=== PATIENT | female | born 1955 | race Caucasian/White ===

== ENCOUNTER 2022-10-19 18:51 | Inpatient (IN) | payer MEDICARE, OTHER ==
[~2022-10-19] VITALS: Ht 165.1 cm; Wt 81.6 kg
[2022-10-19] MEDS ORDERED: FUROSEMIDE 40MG/4ML VIAL IV ONE (19:15)
[2022-10-19 19:37] LABS: BASOPHILS % 0.4 % (0.0-2.0); DIFFERENTIAL COMMENT 0; HEMATOCRIT. 29.5 % (36.0-48.0); HEMOGLOBIN. 9.7 g/dL (12.0-16.0); LYMPHOCYTES % 39.5 % (20.0-50.0); MEAN CORPUSCULAR HGB CONC 32.8 g/dL (31.0-37.0); MEAN CORPUSCULAR VOLUME 79.1 fL (81.0-99.0); MEAN PLATELET VOLUME 7.4 fl (7.4-10.4); MONOCYTES % 12.6 % (2.0-8.0); NEUTROPHILS % 44.5 % (40.0-76.0); PLATELET 532 x1000/uL (130-400); RED BLOOD CELL COUNT 3.74 mill/uL (4.2-5.4); RED CELL DISTRIBUTION WIDTH 16.3 % (11.6-14.6); WHITE BLOOD COUNT 7.9 x1000/uL (4.5-11.0)
[2022-10-19 19:48] LABS: CHLORIDE 108 mEq/L (98-107); INDEX HEMOLYSI 1 (1-3); INDEX ICTERIC 1 (1-4); INDEX LIPEMIC 1 (1-3); POTASSIUM 3.4 mEq/L (3.5-5.1); SODIUM 138 mEq/L (136-145)
[2022-10-19 19:58] LABS: ALANINE AMINOTRANSFERASE 23 IU/L (13-61); ALBUMIN 2.8 g/dL (3.4-5.0); ASPARTATE AMINOTRANSFERASE 19 IU/L (15-37); BILIRUBIN TOTAL 0.3 mg/dL (0.1-1.0); CALCIUM 8.7 mg/dL (8.5-10.1); CARBON DIOXIDE 25 mEq/L (21-32); CREATININE 0.7 mg/dL (0.6-1.3); GLUCOSE 121 mg/dL (70-105); NT PRO B-TYPE NATRIURETIC PEP 98 pg/mL (5-125); PROTEIN TOTAL 6.4 g/dL (6.0-8.3); TROPONIN I HIGH SENSITIVITY 4 ng/L (<54); UREA NITROGEN BLOOD 7 mg/dL (7-21)
[2022-10-19] MEDS ORDERED: DIPHENHYDRAMINE 50MG/ML VIAL IV PRN (23:30)
[2022-10-19] MEDS ORDERED: ACETAMINOPHEN 325MG TABLET PO PRN ×2 (23:30)
[2022-10-19] MEDS ORDERED: IBUPROFEN 400MG TABLET PO PRN (23:30)
[2022-10-19] MEDS ORDERED: ONDANSETRON HCL 4MG/2ML INJ IV PRN (23:30)
[2022-10-19] MEDS ORDERED: ZOLPIDEM TARTRATE 5MG TABLET PO PRN (23:30)
[2022-10-19] MEDS ORDERED: CLONIDINE 0.1MG TABLET PO PRN (23:30)
[2022-10-19] MEDS ORDERED: MAGNESIUM/ALUMINUM HYDROXIDE/SIMETHICONE 30ML UDC PO PRN (23:30)
[2022-10-20 01:33] VITALS: BP 132/64; PULSE 87; RESP 20; TEMP 98.1
[2022-10-20] MEDS ORDERED: BENA-8 MT (03:32)
[2022-10-20] MEDS: SODIUM CHLORIDE 0.9% INJ 3ML FLUSH IVF SCH ×3 (05:28→22:00)
[2022-10-20 07:17] LABS: CHLORIDE 109 mEq/L (98-107); INDEX HEMOLYSI 1 (1-3); INDEX ICTERIC 1 (1-4); INDEX LIPEMIC 1 (1-3); POTASSIUM 3.1 mEq/L (3.5-5.1); SODIUM 140 mEq/L (136-145)
[2022-10-20 07:23] LABS: CALCIUM 8.5 mg/dL (8.5-10.1); CARBON DIOXIDE 27 mEq/L (21-32); CREATININE 0.8 mg/dL (0.6-1.3); GLUCOSE 99 mg/dL (70-105); PHOSPHORUS 3.8 mg/dL (2.5-4.9); UREA NITROGEN BLOOD 7 mg/dL (7-21)
[2022-10-20 08:00] VITALS: BP 109/50; PULSE 78; RESP 18; TEMP 97.5
[2022-10-20] MEDS: POTASSIUM CHLORIDE 20MEQ TABLET SR PO SCH ×3 (08:26→17:25)
[2022-10-20] MEDS: LISINOPRIL 5MG TABLET PO SCH (08:27)
[2022-10-20] MEDS: FUROSEMIDE 40MG/4ML VIAL IVP SCH (08:27)
[2022-10-20] MEDS: ENOXAPARIN 40MG/0.4ML SYR SUBCUT SCH (08:29)
[2022-10-20 12:00] VITALS: BP 131/56; PULSE 90; RESP 19; TEMP 97.7
[2022-10-20] MEDS ORDERED: MAGNESIUM 2 G PREMIX 50 ML IV NR (15:45)
[2022-10-20 16:00] VITALS: BP 111/65; PULSE 84; RESP 18; TEMP 97.9
[2022-10-20] MEDS ORDERED: METOLAZONE 10MG TABLET PO NR (17:00)
[2022-10-20 20:00] VITALS: BP 120/37; PULSE 89; RESP 20; TEMP 97.9
[2022-10-21 04:00] VITALS: BP 120/46; PULSE 83; RESP 20; TEMP 97.9
[2022-10-21] MEDS: SODIUM CHLORIDE 0.9% INJ 3ML FLUSH IVF SCH ×2 (06:00→13:02)
[2022-10-21 08:00] VITALS: BP 101/57; PULSE 88; RESP 20; TEMP 97.9
[2022-10-21 08:25] LABS: CHLORIDE 108 mEq/L (98-107); INDEX HEMOLYSI 1 (1-3); INDEX ICTERIC 1 (1-4); INDEX LIPEMIC 1 (1-3); POTASSIUM 3.3 mEq/L (3.5-5.1); SODIUM 138 mEq/L (136-145)
[2022-10-21 08:33] LABS: CALCIUM 9.5 mg/dL (8.5-10.1); CARBON DIOXIDE 25 mEq/L (21-32); CREATININE 0.7 mg/dL (0.6-1.3); GLUCOSE 103 mg/dL (70-105); UREA NITROGEN BLOOD 7 mg/dL (7-21)
[2022-10-21] MEDS: POTASSIUM CHLORIDE 20MEQ TABLET SR PO SCH ×2 (08:37→13:01)
[2022-10-21] MEDS: LISINOPRIL 5MG TABLET PO SCH (08:38)
[2022-10-21] MEDS: FUROSEMIDE 40MG/4ML VIAL IVP SCH (08:39)
[2022-10-21] MEDS: ENOXAPARIN 40MG/0.4ML SYR SUBCUT SCH (08:39)
[2022-10-21 12:00] VITALS: BP 105/53; PULSE 97; RESP 20; TEMP 97.8
[2022-10-21 13:28] VITALS: RESP 20
[2022-10-21 14:57] VITALS: BP 105/53; PULSE 97; TEMP 97.8; O2SAT 95
== END 2022-10-21 15:32 | disposition home or self-care (01) | DRG 291 ==
LOC: ER 18:51 → EDBEDREQ 19:12 → 6EST 21:10 → EDBEDREQTM 21:22 → EDBEDREQ 21:22 → EDBEDREQSVC 21:22 → ENRESERV 23:11
PROVIDERS: ADMIT Internal Medicine; ATTEND Internal Medicine
DX: I11.0 Hypertensive heart disease with heart failure (principal); I50.43 Acute on chronic combined systolic (congestive) and diastolic (congestive) heart failure; E66.01 Morbid (severe) obesity due to excess calories; E83.39 Other disorders of phosphorus metabolism; Z68.30 Body mass index [BMI] 30.0-30.9, adult; E87.6 Hypokalemia; D64.9 Anemia, unspecified; E11.9 Type 2 diabetes mellitus without complications; G89.29 Other chronic pain; M19.90 Unspecified osteoarthritis, unspecified site
CPT/HCPCS: 36415; 71045; 74176; 80048; 80053; 83036; 83735; 83880; 84100; 84484; 85025; 93005; 93306; 93970; 99285; J1650; J1940; J3475